=== PATIENT | female | born 2000 | race Caucasian/White ===

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

== ENCOUNTER 2019-03-07 10:33 | Emergency (ER) | payer BC, OTHER, SELFPAY ==
[2019-03-07 10:33] VITALS: BMI 15.7
[2019-03-07 10:34] VITALS: BP 105/75; PULSE 113; RESP 20; TEMP 36.4; O2SAT 100; BMI 18.8
[2019-03-07 10:38] VITALS: O2SAT 100
[2019-03-07] MEDS: Ipratropium/Albuterol Sulfate 3 ML AMPUL.NEB INHALATION (11:17)
[2019-03-07 11:18] VITALS: PULSE 108; RESP 20
--- NOTE | 2019-03-07 12:30 | ED.RN ---
pt resting comfortably and states feeling much better. breathing is equal and unlabored at this time.
[2019-03-07 12:39] VITALS: BP 103/68; PULSE 105; RESP 17; O2SAT 100
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
[2019-03-07 13:52] VITALS: BP 97/72; PULSE 89; RESP 18; O2SAT 98
--- NOTE | 2019-03-07 13:58 | ED.RN ---
IV DC'ED, CATHETER INTACT, SMALLL GAUZE DRESSING PLACED. DISCHARGE INSTRUCTIONS GIVEN TO AND REVIEWED WITH PATIENT, PATIENT DENIES QUESTIONS OR CONCERNS AND VOICES UNDERSTANDING OF DISCHARGE INSTRUCTIONS. PT AMBULATES OUT OF ROOM WITHOUT DIFFICULTY.
== END 2019-03-07 13:59 | disposition home or self-care (01) ==
PROVIDERS: Emergency Provider Emergency Medicine; Family Provider Pediatrics; PCP Pediatrics
DX: J45.901 Unspecified asthma with (acute) exacerbation (principal); Z79.51 Long term (current) use of inhaled steroids
CPT/HCPCS: 94640; 99284; A4216

== ENCOUNTER 2020-08-07 18:55 | Emergency (ER) | payer BC, SELFPAY ==
[2020-08-07 18:56] VITALS: BP 146/84; PULSE 131; RESP 18; TEMP 36.1; O2SAT 99; BMI 16.0
--- NOTE | 2020-08-07 19:05 | CT_ITS ---
STUDY: CT ABDOMEN AND PELVIS WITHOUT CONTRAST REASON FOR EXAM: Female, 20 years old. RLQ ABD PAIN WITH N/V X 3 HOURS -- NEGATIVE PREG TEST RADIATION DOSAGE (If Supplied By Facility): CTDIvol = ( 6.04 ) mGy, DLP = ( 268.77 ) mGycm TECHNIQUE: Transaxial images were obtained from the dome of the diaphragm to the symphysis pubis without oral contrast, and without intravenous contrast. Sagittal and coronal images were reconstructed. Individualized dose optimization techniques were used for this CT. COMPARISON: None. FINDINGS: The visualized lung bases are unremarkable. The visualized portions of the heart are within normal limits. Normal liver. Normal gallbladder and extrahepatic biliary system. There is a low-attenuation 1.1 cm focus of the posterior spleen most likely representing cyst. Normal pancreas. Normal bilateral adrenal glands. Normal right kidney. Normal left kidney. Normal visualized stomach. Normal small intestine. Normal colon. The appendix is visualized and appears normal. Normal abdominal aorta. Normal inferior vena cava. Normal retroperitoneum. Normal urinary bladder. The uterus appears normal. There is a small amount of free fluid in the deep right pelvis. Normal abdominal wall. Normal osseous structures. CT/Abdomen/Pelvis without Cont IMPRESSION: 1. Small amount of free fluid in the deep right pelvis. This may be physiologic. 2. Low-attenuation 1.1 cm focus of the posterior spleen most likely representing cysts. Nonemergent ultrasound correlation is recommended. 3. The appendix appears normal. Electronically Signed: Oumar Bernstein MD at 22:25 EDT , Service support ,
[2020-08-07 19:40] LABS: Absolute Lymphocyte Count 1.36 X10^3/uL (0.83-4.51); Absolute Neutrophil Count 7.2 X10^3/uL (2.0-7.7); Basophil# 0.05 X10^3/uL; Basophil% 0.6 % (0-1); Eosinophil# 0.01 X10^3/uL; Eosinophils% 0.1 % (0-5); Hematocrit 40.7 % (37-47); Hemoglobin 13.4 g/dL (12.0-15.0); Lymphocyte # 1.36 X10^3/ul (4.0); Lymphocyte % 15.1 % (19-41); Mean Corp Hgb Conc 32.9 g/dL (32-36); Mean Corpuscular Hgb 28.8 pg (27.0-32.0); Mean Corpuscular Volume 87.3 fL (81-99); Mean Platelet Vol. 10.5 fl (6.2-12.0); Monocyte% 4.4 % (0-10); NRBC Flagged by Analyzer 0 % (0-5); Neutrophil # 7.15 X10^3/uL (2.7-7.7); Neutrophil % 79.5 % (47-70); Platelet Count 282 K/mm3 (150-450); RBC Distribution Width CV 11.9 % (11.6-14.6); RBC Distribution Width SD 38.2 fl (35.1-43.9); Red Blood Count 4.66 M/mm3 (4.2-5.4)
[2020-08-07] MEDS: 0.9% Normal Saline 1,000 ML 1000 ML IV (19:51)
[2020-08-07] MEDS: Morphine 4 MG/ML Syringe IV (19:51)
--- NOTE | 2020-08-07 19:51 | ED.DCSUM_ITS ---
History of Present Illness Chief Complaint: Abd Pain Informant: Patient Onset: Today Context: Sudden Onset Timing: Continuous Current Severity: Moderate Maximum Severity: Moderate Narrative: The patient is a 20-year-old female with medical history significant for prior ovarian cyst that presents to the emergency department with right lower quadrant pain. The patient states her symptoms began today. She states she had a dull ache in her right lower pelvis about 3 hours ago. She states it worsened. She states she got nauseated and felt like she had a vomits. She denies any vaginal bleeding or discharge. She denies any urinary symptoms. She has no history of prior abdominal surgery. Prior similar symptoms: Yes Recent Illness/Hospitalization: No Past Medical History - Allergies and Home Meds Allergies/Adverse Reactions: Allergies No Known Allergies Allergy (Verified 08/07/20 18:56) Primary Care Physician: BILL CANDELARIO [Other] Prior records reviewed: Yes Past Medical History: - - Ovarian cyst Surgical History: noncontributory Smoking Status: Never smoker Review of Systems General: Denies: Chills, Fever, Sweats Eyes: Denies: Visual changes - bilaterally, Diplopia ENT: Denies: Rhinorrhea, Sore throat Cardiovascular: Denies: Chest pain, Palpitations Respiratory: Denies: Dyspnea, Cough, Dyspnea on exertion Gastrointestinal: Reports: Abdominal pain, Nausea. Denies: Vomiting, Diarrhea, Melena, Hematochezia Genitourinary: Denies: Dysuria, Hematuria, Frequency Musculoskeletal: Denies: Back pain, Extremity Pain Skin: Denies: Rash, Wounds Neurological: Denies: Headache, Weakness, Numbness Physical Exam Vital Signs/Narrative: Vital Signs Temp Pulse Resp BP Pulse Ox 08/07/20 18:56 97 F L 131 H 18 146/84 H 99 Inital Vital Signs reviewed: Yes General: Well nourished, Well developed, No Acute Distress Head: Normocephalic, Atraumatic Eyes: Perrl, EOMI ENT: Moist mucous membranes, No rhinorrhea Neck: Supple, Nontender Cardiovascular: Regular rate, Regular rhythm, No murmurs Respiratory: No distress, CTA bilaterally, Chest nontender Abdomen: Soft, Nondistended, Normal bowel sounds, Tender. Negative for: Guarding, Rebound tenderness Back: Nontender, Normal Inspection Extremities: Nontender, No edema Skin: Normal color, No rash Neurological: Alert, Oriented x3, Cranial nerves II-XII grossly intact, Normal Strength, Normal Sensation Psychological: Normal affect, Normal Mood Diagnostic/Tx/Re-eval Clinical Impression(s) from Imaging Studies Abdomen/Pelvis CT 08/07/20 19:05 IMPRESSION: 1. Small amount of free fluid in the deep right pelvis. This may be physiologic. 2. Low-attenuation 1.1 cm focus of the posterior spleen most likely representing cysts. Nonemergent ultrasound correlation is recommended. 3. The appendix appears normal. Electronically Signed: Oumar Bernstein MD at 22:25 EDT , Service support , - Medical Decision Making Patient presents with right lower quadrant pain slowly developed and worsened. She is mildly tender to palpation. IV was established. She was treated with analgesics and antiemetics with improvement. Screening labs are obtained are unremarkable. There is no evidence of . There is no evidence of urinary tract infection. Patient underwent CT which shows small amount of fluid within the right pelvis. I do feel that this is consistent with small cyst rupture. There is no evidence of persistent hemorrhage. Her pain is now controlled. I will treat the patient with anti-inflammatories short course of analgesics. She will follow-up with [employer]. Impression 1. Right ovarian cyst with rupture ED Disposition - Plan for ED Patient: Instructions: ED Cyst Ovarian Prescriptions: Naproxen [Naprosyn] 500 mg PO BID PRN #20 tab Prescription Printed Hydrocodone Bitart/Apap 5-325 [[place] 5MG-325MG] 1 tab PO Q6H PRN PRN 3 Days #8 tab PRN Reason: Pain Prescription Printed Referrals: BILL CANDELARIO [Other]
[2020-08-07] MEDS: Ondansetron 4 MG/2 ML Vial IV (19:52)
[2020-08-07 19:53] LABS: Anion Gap 8 (5-15); BUN 11 mg/dL (7-18); BUN/Creat Ratio 15.2 RATIO (10-20); Chloride 109 mmol/L (98-107); Creatinine, Serum 0.72 mg/dL (0.55-1.02); EST Glomerular Filtration Rate 108 mL/min (>60); Est Glom Filt Rate - Afr Amer 131 mL/min (>60); Estimated Creatinine Clearance 85.46 ml/min; Glucose 77 mg/dL (74-106); Potassium 3.3 mmol/L (3.5-5.1); Sodium Level 141 mmol/L (136-145)
[2020-08-07 21:54] LABS: Color, Urine Yellow (Yellow); Glucose, Dipstick Normal (Normal); Ketone-Dipstick 50 mg/dl (Negative); Leukocyte Esterase-Dipstick 25 /ul (Negative); Nitrite-Dipstick Negative (Negative); Occult Blood-Urine 250 /ul (Negative); Protein-Dipstick 15 mg/dl (Negative); Specific Gravity, Urine 1.015 (1.002-1.030); Urine Bilirubin Dipstick Negative (Negative); Urine Clarity Clear (Clear); Urine Urobilinogen Normal (Normal)
[2020-08-07 21:56] LABS: Internal QC Validated? YES +Cl - CLEAR BKGD; Pregnancy, Urine Negative Negative
[2020-08-07 22:00] LABS: Red Blood Cells-Urine 25-50 SEEN /hpf (0-5); White Blood Cells 0-5 SEEN /hpf (0-5)
[2020-08-07 22:01] LABS: Bacteria 1+ /hpf (None Seen); Mucous, Urine 1+ /hpf (<or=2+); Squamous Epithelial Cells - UA 0-5 SEEN /hpf (5-10)
--- NOTE | 2020-08-07 22:06 | ED.RN ---
[employer] updated on patient condition at this time
[2020-08-07] MEDS: Ketorolac 15 MG/ML Vial IV (22:40)
== END 2020-08-07 22:51 | disposition home or self-care (01) ==
LOC: ED 19:18
PROVIDERS: Emergency Provider Emergency Medicine
DX: N83.201 Unspecified ovarian cyst, right side (principal)
CPT/HCPCS: 74176; 80048; 81001; 81025; 85025; 96361; 96374; 96375; 99283; J7030; A4216; J2405